=== PATIENT | female | born 2000 | race Caucasian/White ===

== ENCOUNTER 2023-09-14 12:02 | Outpatient (CLI) | payer BC | END 2023-09-14 12:03 | disposition home or self-care (01) | LOC: SCSMRI 12:02 | PROVIDERS: ATTEND Orthopaedic Surgery | DX: S83.242A Other tear of medial meniscus, current injury, left knee, initial encounter (principal); S83.402A Sprain of unspecified collateral ligament of left knee, initial encounter ==